=== PATIENT | male | born 1975 ===

== ENCOUNTER 2019-01-21 13:21 | Emergency (ER) | payer MEDICARE ==
[~2019-01-21] VITALS: Ht 182.9 cm; Wt 110.0 kg
[2019-01-21 14:51] LABS: BASO % 0.2 % (0.0-2.0); EOS # 0.1 (0.0-0.7); EOS % 0.4 % (0-4.0); GRAN # 9.1 (1.4-6.5); HEMATOCRIT 44.8 % (42.0-52.0); HEMOGLOBIN 14.6 g/dl (13.5-18.0); LYMPH # 2.2 (1.2-3.4); LYMPH % 17.9 % (20.0-51.0); MEAN CELL VOLUME 89 fl (80.0-100.0); MEAN CORPUSCULAR HEMOGLOBIN 29 pg (27.0-31.0); MEAN CORPUSCULAR HGB CONC 33 g/dl (33.0-37.0); MEAN PLATELET VOLUME 8.7 fl (7.4-10.4); MONO # 0.9 (0.1-0.6); MONO % 6.9 % (1.7-9.3); PLATELET COUNT 332 K/mm3 (130-400); RED BLOOD COUNT 5.06 M/mm3 (4.20-5.60); REDCELL DISTRIBUTION WIDTH-CV 15.1 % (11.5-14.5)
[2019-01-21] MEDS ORDERED: PRINIVIL40 MG PO (14:59)
[2019-01-21] MEDS ORDERED: DILAUDID 4MG TAB4 MG PO (14:59)
[2019-01-21] MEDS ORDERED: ZOFRAN8 MG PO (15:00)
[2019-01-21] MEDS ORDERED: PRILOSEC 20MG20 MG PO (15:00)
[2019-01-21] MEDS ORDERED: PHENERGAN 25 TA25 MG PO (15:01)
[2019-01-21 15:02] LABS: ALANINE AMINOTRANSFERASE 47 U/L (21-72); ALBUMIN 4.4 gm/dL (3.5-5.0); ALKALINE PHOSPHATASE 71 U/L (50-136); ANION GAP 9 mmol/L (7-16); AST,SGOT 29 U/L (15-37); BILIRUBIN,TOTAL 0.6 mg/dL (0.0-1.0); BLOOD UREA NITROGEN 10 mg/dL (9-20); CALCIUM 9.6 mg/dL (8.4-10.2); CARBON DIOXIDE 26 mmol/L (22-30); CHLORIDE 104 mmol/L (98-107); CREATININE, serum 0.91 (0.66-1.25); GLUCOSE 102 mg/dL (74-106); POTASSIUM 4.2 mmol/L (3.4-5.0); SODIUM 139 mmol/L (137-145); TOTAL PROTEIN 7.9 gm/dL (6.4-8.2)
[2019-01-21] MEDS ORDERED: ORACEA40MG PO (15:02)
[2019-01-21 15:06] LABS: C-REACTIVE PROTEIN < 0.5 mg/dL (0.0-0.9)
[2019-01-21] MEDS ORDERED: CLEOCIN HCL300 MG PO (16:19)
[2019-01-21 16:50] VITALS: BP 132/86; PULSE 82; TEMP 98.6
== END 2019-01-21 16:50 | disposition home or self-care (01) ==
LOC: COL.ER 13:21
PROVIDERS: Nurse Practitioner
DX: L08.9 Local infection of the skin and subcutaneous tissue, unspecified (principal); F17.210 Nicotine dependence, cigarettes, uncomplicated
CPT/HCPCS: J1170; J1644; J2550

== ENCOUNTER 2020-02-16 14:30 | Emergency (ER) | payer MEDICARE ==
[~2020-02-16] VITALS: Ht 188 cm; Wt 112.3 kg
[~2020-02-16 14:30] MED LIST: CLEOCIN HCL300 MG PO; DILAUDID 4MG TAB4 MG PO; ORACEA40MG PO; PHENERGAN 25 TA25 MG PO; PRILOSEC 20MG20 MG PO; PRINIVIL40 MG PO; ZOFRAN8 MG PO
[2020-02-16 14:49] VITALS: TEMP 98.2
[2020-02-16 16:46] LABS: BASO % 0.3 % (0.0-2.0); EOS # 0.1 (0.0-0.7); EOS % 0.6 % (0-4.0); GRAN # 6.6 (1.4-6.5); GRAN % 69.9 % (42.2-75.2); HEMATOCRIT 40.6 % (42.0-52.0); HEMOGLOBIN 13.6 g/dl (13.5-18.0); LYMPH # 2.1 (1.2-3.4); LYMPH % 21.9 % (20.0-51.0); MEAN CELL VOLUME 90 fl (80.0-100.0); MEAN CORPUSCULAR HEMOGLOBIN 30 pg (27.0-31.0); MEAN CORPUSCULAR HGB CONC 34 g/dl (33.0-37.0); MEAN PLATELET VOLUME 8.3 fl (7.4-10.4); MONO # 0.7 (0.1-0.6); PLATELET COUNT 336 K/mm3 (130-400); REDCELL DISTRIBUTION WIDTH-CV 14.5 % (11.5-14.5)
[2020-02-16 16:55] LABS: ALANINE AMINOTRANSFERASE 23 U/L (4-49); ALBUMIN 4.5 gm/dL (3.5-5.0); ALKALINE PHOSPHATASE 52 U/L (50-136); ANION GAP 10 mmol/L (7-16); AST,SGOT 22 U/L (15-37); BILIRUBIN,TOTAL 0.2 mg/dL (0.0-1.0); BLOOD UREA NITROGEN 10 mg/dL (9-20); C-REACTIVE PROTEIN < 0.5 mg/dL (0.0-0.9); CALCIUM 9.6 mg/dL (8.4-10.2); CARBON DIOXIDE 24 mmol/L (22-30); CHLORIDE 106 mmol/L (98-107); CREATININE, serum 1.04 (0.66-1.25); GLUCOSE 124 mg/dL (74-106); LIPASE 44 U/L (23-300); POTASSIUM 3.6 mmol/L (3.4-5.0); SODIUM 141 mmol/L (137-145); TOTAL PROTEIN 7.7 gm/dL (6.4-8.2)
[2020-02-16 17:20] VITALS: BP 137/94; PULSE 89
== END 2020-02-16 17:20 | disposition home or self-care (01) ==
LOC: COL.ER 14:30
PROVIDERS: Nurse Practitioner
DX: R11.2 Nausea with vomiting, unspecified (principal); R00.0 Tachycardia, unspecified; R10.13 Epigastric pain; Z88.4 Allergy status to anesthetic agent; Z88.5 Allergy status to narcotic agent; Z88.6 Allergy status to analgesic agent; Z88.8 Allergy status to other drugs, medicaments and biological substances
CPT/HCPCS: J1170; J1644; J2550; J7030

== ENCOUNTER 2021-06-07 15:25 | Emergency (ER) | payer MEDICARE, MEDICAID ==
[~2021-06-07] VITALS: Ht 185.4 cm; Wt 115.9 kg
[2021-06-07 15:47] VITALS: TEMP 99.5
[2021-06-07 17:49] VITALS: BP 158/100; PULSE 89
== END 2021-06-07 17:49 | disposition home or self-care (01) ==
LOC: COL.ER 15:25
DX: G89.29 Other chronic pain (principal); R11.2 Nausea with vomiting, unspecified; Z79.891 Long term (current) use of opiate analgesic
CPT/HCPCS: J1170; J2405